=== PATIENT | female | born 2005 | race Caucasian/White ===

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

== ENCOUNTER 2025-03-31 14:11 | Outpatient (REF) | payer MEDICAID, SELFPAY ==
[2025-03-31 15:03] LABS: Abs Immature Grans 0.02 10^3/uL (0.0-0.06); HCT 33.3 % (36.0-46.0); HGB 10.6 g/dL (11.2-15.7); Immature Grans % 0.5 %; MCH 27.5 pg (27.0-33.0); MCHC 31.8 % (32.0-36.0); MCV 86 fL (80-95); RBC 3.86 10^6/uL (3.93-5.22); RDW 14.2 % (11.7-14.6); RDW-SD 44.0 fL; WBC 4.39 10^3/uL (4.4-10.8)
[2025-03-31 15:26] LABS: Platelet Count 91 10^3/uL (130-400)
[2025-03-31 15:36] LABS: ALT 25 U/L (10-49); AST 33 U/L (<34); Albumin 4.3 g/dL (3.2-5.0); Alkaline Phosphatase 77 U/L (46-116); Anion Gap 10.8 mmol/L (3-11); BUN 11 mg/dL (9-23); Bilirubin, Total 0.2 mg/dL (0.2-1.2); CO2 22.2 mmol/L (20.0-31.0); Calcium 9.0 mg/dL (8.3-10.6); Chloride 109 mmol/L (98-107); Cholesterol 135 mg/dL (<200); Glucose 87 mg/dL (74-106); HDL Cholesterol 64 mg/dL (>or=50); Potassium 4.7 mmol/L (3.5-5.1); Sodium 142 mmol/L (136-145); TSH (W/Ref FT4) 2.87 uIU/mL (0.48-4.17); Total Protein 7.3 g/dL (5.7-8.2)
[2025-03-31 15:43] LABS: Hemoglobin A1C 5.1 % (<5.7)
== END 2025-03-31 14:12 | disposition home or self-care (01) ==
LOC: NCHCN 14:11
PROVIDERS: Visit Provider Nurse Practitioner Family
DX: Z13.1 Encounter for screening for diabetes mellitus (principal); F90.9 Attention-deficit hyperactivity disorder, unspecified type; F51.04 Psychophysiologic insomnia; F84.0 Autistic disorder; F91.9 Conduct disorder, unspecified; F42.4 Excoriation (skin-picking) disorder; F81.9 Developmental disorder of scholastic skills, unspecified; Z13.220 Encounter for screening for lipoid disorders; Z83.49 Family history of other endocrine, nutritional and metabolic diseases
CPT/HCPCS: 80053; 80061; 83036; 84443; 85025

== ENCOUNTER 2025-04-04 08:58 | Outpatient (REF) | payer MEDICAID, SELFPAY ==
[2025-04-04 15:14] LABS: Abs Immature Grans 0.02 10^3/uL (0.0-0.06); HCT 34.8 % (36.0-46.0); HGB 11.1 g/dL (11.2-15.7); Immature Grans % 0.3 %; MCH 27.1 pg (27.0-33.0); MCHC 31.9 % (32.0-36.0); MCV 85 fL (80-95); MPV 10.2 fL (8.0-11.0); Platelet Count 286 10^3/uL (130-400); RBC 4.10 10^6/uL (3.93-5.22); RDW 14.1 % (11.7-14.6); RDW-SD 43.3 fL; WBC 7.29 10^3/uL (4.4-10.8)
== END 2025-04-04 08:59 | disposition home or self-care (01) ==
LOC: NCHCN 08:58
PROVIDERS: Visit Provider Nurse Practitioner Family
DX: F90.9 Attention-deficit hyperactivity disorder, unspecified type (principal); F51.04 Psychophysiologic insomnia; F84.0 Autistic disorder; F91.9 Conduct disorder, unspecified; F42.4 Excoriation (skin-picking) disorder; F81.9 Developmental disorder of scholastic skills, unspecified
CPT/HCPCS: 85025